=== PATIENT | female | born 2005 | race Hispanic/Latino ===

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

== ENCOUNTER 2025-02-22 15:32 | Emergency (ER) | payer SELFPAY ==
[~2025-02-22] VITALS: Ht 152.4 cm; Wt 62.1 kg
[~2025-02-22 15:32] MED LIST: AMOX-426 PO; CEPH500B PO; IBUP-2784 PO; OXYM30SP27 NS
[2025-02-22 15:51] LABS: APPEARANCE,URINE CLEAR (CLEAR); BILIRUBIN,URINE NEGATIVE (NEGATIVE); COLOR,URINE YELLOW (YELLOW); GLUCOSE, URINE (UA) NEGATIVE (NEGATIVE); KETONES,URINE NEGATIVE (NEGATIVE); LEUKOCYTE ESTERASE ,URINE NEGATIVE Leu/uL (NEGATIVE); NITRATE,URINE NEGATIVE (NEGATIVE); OCCULT BLOOD,URINE NEGATIVE (NEGATIVE); PH,URINE 7.5 (5.0-8.0); PROTEIN,URINE NEGATIVE (NEGATIVE); UROBILINOGEN,URINE 0.2 mg/dL (0.2-1.0)
[2025-02-22] MEDS: ondanSETRON 4MG INJ IVP ONE (15:51)
[2025-02-22] MEDS: 0.9%NACL 1000ML 1,000 ML IV ONE (15:52)
[2025-02-22 15:54] LABS: ADD UA MICROSCOPIC NO
--- NOTE | 2025-02-22 15:56 | ERN ---
General Chief Complaint: Nausea,Vomiting,Diarrhea Stated Complaint: NAUSEA, VOMITING AND DIARRHEA, Time Seen by MD: 15:34 Time Seen by Midlevel: 15:34 Source: patient History of Present Illness Initial Comments The patient is a 19-year-old female presenting to the emergency department for evaluation of nausea/vomiting/diarrhea that started this morning. She also reports diffuse abdominal cramping. She states she was recently told she was two days ago. She was [facility] where she was told she was approximately nine weeks . She states that for the last two day s she was woken up with severe nausea. She denies any fever, and he was or any other symptoms at this time. Allergies: Coded Allergies: No Known Drug Allergies (Unverified Allergy, Unknown, 06/05/19) Home Meds Active Scripts Ibuprofen (Ibuprofen 200 mg Tablet) 200 Mg Tablet, 600 MG PO TID for 10 Days, #30 TAB Prov:KAYLI WANG MD 09/02/22 Amoxicillin/Potassium Clav (Augmentin 500-125 Tablet) 1 Each Tablet, 1 EACH PO TID for 10 Days, #30 TAB Prov:KAYLI WANG MD 09/02/22 Oxymetazoline HCl (Afrin) 30 Ml [place], 30 ML NS TID for 3 Days, #30 SPRAY Prov:KAYLI WANG MD 09/02/22 Cephalexin Monohydrate (Keflex) 500 Mg Cap, 500 MG PO TID for 7 Days, #21 CAP Prov:BRIDGET CAP 05/23/22 Past Medical History Past Medical History: No Pertinent History Past Surgical History: None Social History Social History: Negative ROS Dictation CONSTITUTIONAL: Negative except for HPI HEAD/FACE: Negative except for HPI EENT: Negative except for HPI RESPIRATORY: Negative except for HPI GASTROINTESTINAL/ABDOMINAL: Negative except for HPI GENITOURINARY: Negative except for HPI MUSCULOSKELETAL: Negative except for HPI INTEGUMENTARY: Negative except for HPI NEUROLOGICAL/PSYCH: Negative except for HPI HEMATOLOGIC/LYMPHATIC: Negative except for HPI All Systems Negative, Except as noted above. 13 point review of systems assessed and all negative except for above. Physical Exam Physical Exam Dictation Vital Signs reviewed General Appearance: Alert, oriented x 3, no acute distress, well developed, nourished. Head and Face: non-traumatic. Eyes: PERRL, pink conjunctivas, eyelid no trauma, anterior chamber with arcus senilis. Ears: Pinnas intact and no signs of trauma or erythema ear canals clear and no discharge TM no erythema Nose: No discharge, no bleeding. Oropharynx: Mouth normal, tongue pink, pharynx clear,no erythema, tonsils no exudates, no abscesses noted, mucous membrane moist Neck: Supple, non-tender, no thyromegaly, no masses, no JVD, no bruits Breast:Deferred Chest:No tenderness, no crepitus, no paradoxical movement, no retractions Lungs:Clear, well-ventilated, symmetric, no rales, no wheezing, no rhonchi, no stridor, good breath sounds bilaterally Heart: Regular rate, regular rhythm, no murmur, no gallops Vascular: no peripheral edema, Abdomen: Soft, positive bowel sounds, nondistended, no guarding, nontender, no rebound, no masses no hepatomegaly, no splenomegaly, no Cohen's sign, no hernias. Rectal: Deferred Genital: Deferred Neurological: Normal speech, motor function intact, sensory function intact Musculoskeletal: Neck nontender, full range of motion, back nontender, full range of motion, Extremities: nontender, full range of motion Skin: Color pink, dry, no turgor, no rash, no lacerations, no abrasions, no contusions. Lymphatic: Deferred Results Laboratory and Microbiology Lab and Micro Result Laboratory Tests Test 02/22/25 15:42 02/22/25 16:12 Urine Color YELLOW (YELLOW) Urine Appearance CLEAR (CLEAR) Urine pH 7.5 (5.0-8.0) Urine Specific [place] 1.022 (1.001-1.031) Urine Protein NEGATIVE mg/dL (NEGATIVE) Urine Glucose (UA) NEGATIVE mg/dL (NEGATIVE) Urine Ketones NEGATIVE mg/dL (NEGATIVE) Urine Occult Blood NEGATIVE (NEGATIVE) Urine Nitrate NEGATIVE (NEGATIVE) Urine Bilirubin NEGATIVE mg/dL (NEGATIVE) Urine Urobilinogen 0.2 mg/dL (0.2-1.0) Urine Leukocyte Esterase NEGATIVE Amanda/uL White Blood Count 8.1 K/uL (4.8-10.8) Red Blood Count 4.89 MIL/uL (4.00-5.50) Hemoglobin 11.3 g/dL (12.0-16.0) L Hematocrit 36.0 % (36-48) Mean Corpuscular Volume 73.6 fL (80-100) L Mean Corpuscular Hemoglobin 23.1 pg (27.0-33.0) L Mean Corpuscular Hemoglobin Concent 31.4 g/dL (32.0-36.0) L Red Cell Distribution Width 16.4 % (11.0-15.5) H Platelet Count 327 K/uL (130-400) Mean Platelet Volume 9.8 fL (7.5-10.5) Immature Granulocyte % (Auto) 0.4 % (0-1) Neutrophils (%) (Auto) 83.6 % (40.0-77.0) H Lymphocytes (%) (Auto) 11.2 % (21.0-51.0) L Monocytes (%) (Auto) 3.1 % (3.0-13.0) Eosinophils (%) (Auto) 1.6 % (0.0-8.0) Basophils (%) (Auto) 0.1 % (0.0-5.0) Neutrophils # (Auto) 6.7 K/uL (1.8-7.7) Lymphocytes # (Auto) 0.9 K/uL (1.0-4.8) L Monocytes # (Auto) 0.3 K/uL (0.1-1.0) Eosinophils # (Auto) 0.13 K/uL (0.00-0.70) Basophils # (Auto) 0.01 K/uL (0.00-0.20) Absolute Immature Granulocyte (auto 0.03 K/uL (0-1) Nucleated Red Blood Cells 0.0 % (0.0-0.19) Sodium Level 139 mmol/L (136-145) Potassium Level 3.8 mmol/L (3.5-5.1) Chloride Level 104 mmol/L (101-111) Carbon Dioxide Level 28 mmol/L (21-32) Blood Urea Nitrogen 7 mg/dL (7-18) Creatinine 0.5 mg/dL (0.5-1.0) Glomerular Filtration Rate Calc 137 mL/min (>90) Random Glucose 79 mg/dL (70-105) Total Calcium 8.9 mg/dL (8.5-10.1) Labs Reviewed?: Yes MDM MDM: The patient is a 19-year-old female presenting to the emergency department for evaluation of nausea/vomiting/diarrhea that started this morning. She also reports diffuse abdominal cramping. She states she was recently told she was two days ago. She was seen at the health department where she was told she was approximately nine weeks . She states that for the last two days she was woken up with severe nausea. She denies any fever, and he was or any other symptoms at this time. Initial vital signs are stable. On physical examination the patient was in no acute distress. Patient was afebrile and nontoxic appearing. CBC was obtained which shows no leukocytosis, hemoglobin is stable at 11.3. No thrombocytopenia is noted. Chemistries are unremarkable. [place] [id number]. Urinalysis does not show any evidence of infection. Differential diagnosis: First trimester , hyperemesis , dehydration, electrolyte abnormality There are no social concerns with this patient. Prescription drug management Prescriptions will include: Zofran Medical management and examination interpretation discussions were had by me with other qualified healthcare professionals as indicated for the patient's care. ED Course Orders Procedure Category Date Status Time Cbc With Differential LAB 02/22/25 In Process 15:38 Basic Metabolic Panel LAB 02/22/25 In Process 15:38 Hcg,Quantitative LAB 02/22/25 In Process 15:38 Urinalysis Profile LAB 02/22/25 Complete 15:38 Us Ob <14 Weeks US 02/22/25 Resulted 15:38 0.9%Nacl 1000ml (Ns PHA 02/22/25 Complete 1000ml) 16:00 Ondansetron 4mg Inj PHA 02/22/25 Complete (Zofran 4mg Inj) 16:00 Current Medications Medications (Trade) Dose Ordered Sig/Jered Route PRN Reason Start Time Stop Time Status Last Admin Dose Admin Ondansetron HCl (zoFRAN 4MG INJ) 4 mg ONCE ONCE IVP 02/22/25 16:00 02/22/25 16:01 DC 02/22/25 15:51 Sodium Chloride 1,000 ml @ 0 mls/hr ONCE ONCE IV 02/22/25 16:00 02/22/25 16:01 DC 02/22/25 15:52 Vital Signs Date Time Temp Pulse Resp B/P (MAP) Pulse Ox O2 Delivery O2 Flow Rate FiO2 02/22/25 15:34 98.1 93 16 118/75 99 Room Air [place] [id number] [place] [address] IMAGING REPORT Signed PATIENT: ALETA WHITTINGTON I MR#: [id number] : 2005 SEX: F AGE: 19 LOCATION: [facility] ORDER [id number] STATUS: REG ER REPORT#: [id number] SERVICE [id number] REASON: N/V/D, abd cramping, approx 9 weeks ORDERING PHYSICIAN: PHILLY GUTIÉRREZ PROCEDURE: OB <14 - US OB <14 WEEKS US OB <14 WEEKS HISTORY: Nausea, vomiting and diarrhea COMPARISON: None TECHNIQUE: Obstetrical ultrasound study was performed. FINDINGS: The uterus measures 8 x 7 x 9.6 centimeter. Right ovary measures 2.1 x 1.4 x 1.7 centimeter. Left ovary measures 2 x 1.6 x 2.3 centimeter. There is single intrauterine gestation with estimated gestational age of 5 weeks and 6 days. heart rate activity is seen. Beta hCG correlation is recommended. No fluid is seen in the cul-de-sac. IMPRESSION: 1. There is single intrauterine gestation with estimated gestational age of arteries and 6 days. activity is seen. DICTATED BY: FELIPE GOODRICH MD DATE: 02/22/251643 ELECTRONICALLY SIGNED BY: FELIPE GOODRICH MD DATE: 02/22/251647 DX & DISP Disposition: Discharge Departure Impression: Primary Impression: First trimester Condition: Stable Additional Instructions: Your blood work today is unremarkable. Your hCG quant level is 64,114 Your pelvic ultrasound reveals a single intrauterine gestation with an estimated gestational age of six days. There is heart activity noted. Continue with your daily vitamins. Follow up with your OBGYN as scheduled. If you develop any new or worsening symptoms please report to the ER for further evaluation. I have provided you with a prescription for Zofran which should help improve your nausea with the next couple of days. Referrals: SELF,REFERRAL (PCP) Time of Disposition: 17:22 I have reviewed the case, and I agree with, Diagnosis and Plan I performed the substantive portion of the visit. I have reviewed and personally made and approve the management plan that is documented in the note by myself or the LILI. I acknowledge for responsibility for the patient's management plan. PHILLY GUTIÉRREZ February 22, 2025 15:56
[2025-02-22 16:19] LABS: BASOPHILS # (AUTO) 0.01 K/uL (0.00-0.20); BASOPHILS % (AUTO) 0.1 % (0.0-5.0); EOSINOPHILS # (AUTO) 0.13 K/uL (0.00-0.70); EOSINOPHILS % (AUTO) 1.6 % (0.0-8.0); IMMATURE GRANULOCYTE ABSOLUTE 0.03 K/uL (0-1); LYMPHOCYTES # (AUTO) 0.9 K/uL (1.0-4.8); LYMPHOCYTES % (AUTO) 11.2 % (21.0-51.0); MEAN CORPUSCULAR HEMOGLOBIN 23.1 pg (27.0-33.0); MEAN CORPUSCULAR HGB CONC 31.4 g/dL (32.0-36.0); MEAN CORPUSCULAR VOLUME 73.6 fL (80-100); MONOCYTES # (AUTO) 0.3 K/uL (0.1-1.0); MONOCYTES % (AUTO) 3.1 % (3.0-13.0); NEUTROPHILS # (AUTO) 6.7 K/uL (1.8-7.7); NEUTROPHILS % (AUTO) 83.6 % (40.0-77.0); PLATELET COUNT (AUTO) 327 K/uL (130-400); RED BLOOD CELL COUNT(AUTO) 4.89 MIL/uL (4.00-5.50); RED CELL DISTRIBUTION WIDTH 16.4 % (11.0-15.5); WHITE BLOOD COUNT (AUTO) 8.1 K/uL (4.8-10.8)
[2025-02-22 16:28] LABS: CREATININE 0.5 mg/dL (0.5-1.0); POTASSIUM 3.8 mmol/L (3.5-5.1)
--- NOTE | 2025-02-22 16:48 | HMCIMG ---
US OB <14 WEEKS HISTORY: Nausea, vomiting and diarrhea COMPARISON: None TECHNIQUE: Obstetrical ultrasound study was performed. FINDINGS: The uterus measures 8 x 7 x 9.6 centimeter. Right ovary measures 2.1 x 1.4 x 1.7 centimeter. Left ovary measures 2 x 1.6 x 2.3 centimeter. There is single intrauterine gestation with estimated gestational age of 5 weeks and 6 days. heart rate activity is seen. Beta hCG correlation is recommended. No fluid is seen in the cul-de-sac. IMPRESSION: 1. There is single intrauterine gestation with estimated gestational age of arteries and 6 days. activity is seen.
[2025-02-22 17:49] VITALS: BP 115/73; PULSE 80; RESP 18; TEMP 98; O2SAT 99
== END 2025-02-22 17:56 | disposition home or self-care (01) ==
LOC: EDH 15:32
DX: O21.9 Vomiting of pregnancy, unspecified (principal); O26.891 Other specified pregnancy related conditions, first trimester; R19.7 Diarrhea, unspecified; R10.84 Generalized abdominal pain; R10.2 Pelvic and perineal pain; Z3A.09 9 weeks gestation of pregnancy; Z79.1 Long term (current) use of non-steroidal anti-inflammatories (NSAID)
CPT/HCPCS: 99285; 96374; 76801; 96361; 80048; 84702; 85025; 81003; 36415; J7030; J2405